=== PATIENT | male | born 1960 | race Caucasian/White ===

== ENCOUNTER → 2020-08-09 | Day surgery (SDC) | payer OTHER ==
[~2020-08-09] VITALS: Ht 185.4 cm; Wt 117.9 kg
[~2020-08-09] MED LIST: ASPIRIN EC81 MG PO; LIPITOR40 MG PO; MULTIPLE VITAM1 EAC1 PO; PRILOSEC20 MG PO; TOPROL XL100 MG PO; VALSARTAN-HCTZ1 EACH PO
[2020-08-09 08:25] LABS: HCT 39.7 % (42.0-52.0); HGB 12.3 g/dl (13.2-18.0); MCH 23.7 pg (25.0-31.0); MCV 76.6 fL (78.0-100.0); MPV 9.3 fL (6.0-9.5); RBC 5.18 M/uL (4.70-6.00); RDW 15.9 % (11.5-14.0); WBC 8.1 K/uL (4.0-10.5)
[2020-08-09 09:09] LABS: ALBUMIN 3.9 g/dL (3.4-5.0); BILIRUBIN - TOTAL 1.2 mg/dL (0.2-1.0); CREATININE 1.07 mg/dL (0.67-1.17); GLOBULIN (CALCULATION) 3.9 g/dL; TOTAL PROTEIN 7.8 g/dL (6.4-8.2)
== END | disposition home or self-care (01) ==
LOC: FAS 07:00
PROVIDERS: Surgery
DX: D64.9 Anemia, unspecified (principal); K31.9 Disease of stomach and duodenum, unspecified; K29.70 Gastritis, unspecified, without bleeding; K21.9 Gastro-esophageal reflux disease without esophagitis; I10 Essential (primary) hypertension; E78.00 Pure hypercholesterolemia, unspecified; M19.90 Unspecified osteoarthritis, unspecified site; G47.30 Sleep apnea, unspecified; Z79.82 Long term (current) use of aspirin; Z79.899 Other long term (current) drug therapy; Z88.8 Allergy status to other drugs, medicaments and biological substances
CPT/HCPCS: 36415; 80053; J2250; J2704; J7120

== ENCOUNTER 2021-03-07 18:53 | Emergency (ER) | payer OTHER ==
[2021-03-07 20:22] LABS: BASOPHIL 0.7 % (0-2); EOSINOPHIL 2.7 % (0-5); HCT 41.5 % (42.0-52.0); HGB 13.3 g/dl (13.2-18.0); LYMPHOCYTE 22.3 % (15-48); MCH 25.2 pg (25.0-31.0); MCV 78.7 fL (78.0-100.0); MONOCYTE 9.1 % (0-12); MPV 8.6 fL (6.0-9.5); NEUTROPHIL 65.1 % (41-80); NRBC 0; PLT 240 K/uL (150-400); RBC 5.27 M/uL (4.70-6.00); RDW 14.7 % (11.5-14.0); WBC 8.6 K/uL (4.0-10.5)
[2021-03-07 20:34] LABS: INR 1.02 (0.9-1.2); PROTHROMBIN TIME 12.8 SECONDS (11.8-13.4); PTT 23.8 SECONDS (24.4-34.7)
[2021-03-07 20:44] LABS: ALBUMIN 3.8 g/dL (3.4-5.0); BILIRUBIN - TOTAL 0.6 mg/dL (0.2-1.0); BUN/CREAT RATIO (CALC) 12.6 RATIO; CREATININE 1.03 mg/dL (0.67-1.17); GLOBULIN (CALCULATION) 3.5 g/dL; POTASSIUM 3.4 mmol/L (3.5-5.1); TOTAL PROTEIN 7.3 g/dL (6.4-8.2)
[2021-03-07 20:57] LABS: CORONAVIRUS 2019 SARS-COV-2 NEGATIVE (NEGATIVE); INFLUENZA A NAA NEGATIVE (NEGATIVE)
== END 2021-03-07 23:46 | disposition home or self-care (01) ==
LOC: FER 18:53
PROVIDERS: Emergency Medicine
DX: R07.89 Other chest pain (principal); I10 Essential (primary) hypertension; Z20.822 Contact with and (suspected) exposure to COVID-19
CPT/HCPCS: 36415; 71045; 80053; 84484; 85025; 85610; 85730; 93005; U0002

== ENCOUNTER 2021-11-15 12:39 | Emergency (ER) | payer OTHER ==
[2021-11-15 13:13] LABS: BASOPHIL 0.8 % (0-2); EOSINOPHIL 2.8 % (0-5); HGB 14.1 g/dl (13.2-18.0); LYMPHOCYTE 35.9 % (15-48); MCH 26.6 pg (25.0-31.0); MCV 82.9 fL (78.0-100.0); MONOCYTE 9.5 % (0-12); MPV 9.2 fL (6.0-9.5); NEUTROPHIL 50.1 % (41-80); NRBC 0; PLT 288 K/uL (150-400); RBC 5.31 M/uL (4.70-6.00); RDW 14.5 % (11.5-14.0); WBC 10.7 K/uL (4.0-10.5)
[2021-11-15 13:34] LABS: INR 0.95 (0.9-1.2); PROTHROMBIN TIME 12.4 SECONDS (11.9-13.9)
[2021-11-15 13:53] LABS: ALBUMIN 3.8 g/dL (3.4-5.0); BILIRUBIN - TOTAL 0.6 mg/dL (0.2-1.0); BUN/CREAT RATIO (CALC) 13.7 RATIO; CREATININE 1.02 mg/dL (0.67-1.17); GLOBULIN (CALCULATION) 4.2 g/dL; MAGNESIUM 1.6 mg/dL (1.8-2.4)
[2021-11-15] MEDS ORDERED: ONDANSETRON ODT4 MG PO (16:10)
[2021-11-15] MEDS ORDERED: ANTIVERT25 MG PO (16:10)
== END 2021-11-15 16:33 | disposition home or self-care (01) ==
LOC: FER 12:39
PROVIDERS: Emergency Medicine
DX: R42 Dizziness and giddiness (principal); R06.4 Hyperventilation; I10 Essential (primary) hypertension
CPT/HCPCS: 36415; 36600; 70450; 71045; 71275; 80053; 82803; 83735; 83880; 84484; 85025; 85610; 85730; 93005; J2405; J7030; Q9967